=== PATIENT | male | born 1955 | race Hispanic/Latino ===

== ENCOUNTER 2020-03-14 07:21 | Day surgery (SDC) | payer MEDICAID ==
[2020-03-14 08:55] LABS: Basophils % (Auto) 0.9 % (0.0-1.8); Eosinophils # (Auto) 0.2 K/mm3 (0.0-0.4); Eosinophils % (Auto) 4.7 % (0.0-4.3); Hematocrit 37.8 % (35.5-45.6); Hemoglobin 12.8 gm/dl (11.8-15.2); Lymphocytes # (Auto) 0.9 K/mm3 (1.2-5.4); Lymphocytes % (Auto) 23.1 % (13.4-35.0); Mean Corpuscular HGB Conc 34 % (32-34); Mean Corpuscular Volume 84 fl (84-94); Monocytes # (Auto) 0.4 K/mm3 (0.0-0.8); Platelet Count 181 K/mm3 (140-440); Red Blood Count 4.48 M/mm3 (3.65-5.03); Red Cell Distribution Width 15.3 % (13.2-15.2)
[2020-03-14] MEDS ORDERED: SODIUM CHLORIDE 0.9% 500 ML 500 ML IV SCH (09:00)
[2020-03-14 09:15] LABS: BUN/Creatinine Ratio 11; Blood Urea Nitrogen 10 mg/dL (9-20); Calcium 9.3 mg/dL (8.4-10.2); Hemolysis Index 22
[2020-03-14] MEDS ORDERED: HEPARIN 10,000 UNITS/10 ML VIAL ONE (09:20)
[2020-03-14] MEDS ORDERED: LIDOCAINE (2%) 20 MG/1 ML VIAL 20 ML MDV INFILTRATI ONE (09:20)
[2020-03-14] MEDS ORDERED: HEPARIN/NS 5000 UNIT/500ML 1,000 ML IR ONE (09:20)
[2020-03-14] MEDS ORDERED: NITROGLYCERIN SYRINGE 0 ML ONE (09:20)
[2020-03-14] MEDS ORDERED: fentaNYL 100 MCG/2 ML INJ ONE (09:21)
[2020-03-14] MEDS: MIDAZOLAM 2 MG/2 ML INJ ONE ×2 (09:51→09:53)
[2020-03-14] MEDS: diphenhydrAMINE 50 MG/ML VIAL ONE ×2 (09:53→10:00)
[2020-03-14 09:55] LABS: INR 1.07 (0.87-1.13)
[2020-03-14 09:56] LABS: Partial Thromboplastin Time 26.1 Sec. (24.2-36.6)
[2020-03-14] MEDS ORDERED: MIDAZOLAM 2 MG/2 ML INJ ONE (09:58)
[2020-03-14 11:36] VITALS: BP 104/49
== END 2020-03-14 12:35 | disposition home or self-care (01) ==
LOC: CATHLABREC 07:21
PROVIDERS: ATTEND Internal Medicine
DX: R07.9 Chest pain, unspecified (principal); I25.118 Atherosclerotic heart disease of native coronary artery with other forms of angina pectoris; I73.9 Peripheral vascular disease, unspecified; E78.00 Pure hypercholesterolemia, unspecified; I10 Essential (primary) hypertension; J43.9 Emphysema, unspecified; K21.9 Gastro-esophageal reflux disease without esophagitis; E03.9 Hypothyroidism, unspecified; F41.9 Anxiety disorder, unspecified; F32.9 Major depressive disorder, single episode, unspecified; Z98.890 Other specified postprocedural states; Z79.899 Other long term (current) drug therapy; Z79.82 Long term (current) use of aspirin; Z95.1 Presence of aortocoronary bypass graft; Z95.5 Presence of coronary angioplasty implant and graft; Z90.49 Acquired absence of other specified parts of digestive tract; Z83.3 Family history of diabetes mellitus; Z82.49 Family history of ischemic heart disease and other diseases of the circulatory system; Z82.5 Family history of asthma and other chronic lower respiratory diseases; Z88.8 Allergy status to other drugs, medicaments and biological substances
CPT/HCPCS: 36415; 80048; 85025; 85610; 85730; 93005; 93458; 99156; 99157; C1894; J1200; J1644; J2250; J3010; J7040

== ENCOUNTER 2020-03-15 08:00 | Day surgery (SDC) | payer MEDICAID ==
[2020-03-15] MEDS ORDERED: SODIUM CHLORIDE 0.9% 500 ML 500 ML IV SCH (09:00)
[2020-03-15] MEDS ORDERED: LIDOCAINE (2%) 20 MG/1 ML VIAL 20 ML MDV INFILTRATI ONE (09:27)
[2020-03-15] MEDS ORDERED: HEPARIN/NS 5000 UNIT/500ML 1,000 ML IR ONE (09:27)
[2020-03-15] MEDS ORDERED: NITROGLYCERIN SYRINGE 0 ML ONE (09:27)
[2020-03-15] MEDS ORDERED: HEPARIN 10,000 UNITS/10 ML VIAL ONE (09:27)
[2020-03-15] MEDS ORDERED: SODIUM CHLORIDE 0.9% 1000 ML 1,000 ML ONE (09:28)
[2020-03-15] MEDS ORDERED: HYDROmorphone 1 MG/1 ML INJ ONE (10:08)
[2020-03-15] MEDS ORDERED: propofoL 200 MG/20 ML VIAL IV ONE ×3 (10:09)
[2020-03-15] MEDS ORDERED: KETAMINE/STERILE WATER 50 MG/ML SYRINGE ONE (10:09)
--- NOTE | 2020-03-15 10:25 | Anesthesia Consultation ---
Anesthesia Consult and Med Hx Date of service: 03/15/20 - Airway Anesthetic Teeth Evaluation: Partials ROM Head & Neck: Adequate Mental/Hyoid Distance: Adequate Mallampati Class: Class III Intubation Access Assessment: Possibly Difficult - Pulmonary Exam CTA: Yes - Cardiac Exam Cardiac Exam: RRR - Pre-Operative Health Status ASA Pre-Surgery Classification: ASA3 Proposed Anesthetic Plan: MAC - Pulmonary Hx Smoking: Yes (DOWN TO 2PACKS PER WEEK-SMOKER X 45 YRS) SOB: Yes (on exertion) COPD: Yes (albuterol prn) Home Oxygen Therapy: No Hx Sleep Apnea: Yes (noncompliant with CPAP) - Cardiovascular System Hx Hypertension: Yes Hx Coronary Artery Disease: Yes (s/p CABG 12/2016) Hx Angina: Yes (chronic) Hx Percutaneous Transluminal Coronary Angioplasty (PTCA): Yes (stent x 1 (12/2016), stent x 2 (2010)) Hx Cardia Arrhythmia: No Hx Pacemaker: No Hx Internal Defibrillator: No Hx Peripheral Vascular Disease: Yes (PAD w/ claudication) - Central Nervous System CVA: No Hx Back Pain: Yes Hx Psychiatric Problems: Yes (anxiety/panic disorder) - Gastrointestinal Hx Gastroesophageal Reflux Disease: Yes - Endocrine Hx Renal Disease: No Hx Liver Disease: Yes (HCV) Hx Insulin Dependent Diabetes: No Hx Non-Insulin Dependent Diabetes: No Hx Hypothyroidism: Yes - Other Systems Hx Substance Use: Yes (hx cocaine abuse; none since 2007) Hx Cancer: Yes (hx prostate and salivary gland cancer) - Additional Comments Anesthesia Medical History Comments: No hx anesthetic complications. Ongoing anginal symptoms with negative ST now scheduled for elective LHC. Previously attempted yesterday with moderate sedation but patient unable to tolerate 2/2 restlessness and anxiety. Anesthesia services consulted for assistance with sedation.
--- NOTE | 2020-03-15 10:25 | Anesthesia Day of Surgery ---
Anesthesia Day of Surgery - Day of Surgery Patient Examined: Yes Patient H&P Reviewed: Yes Patient is NPO: Yes Beta Blockers: Yes
[2020-03-15] MEDS ORDERED: MIDAZOLAM 2 MG/2 ML INJ ONE (10:42)
--- NOTE | 2020-03-15 11:07 | Short Stay Summary ---
Short Stay Documentation Date of service: 03/15/20 - History H&P: obtained from office - Allergies and Medications Current Medications: Allergies amitriptyline Allergy (Verified 03/14/20 08:35) Headache hydrocodone [From Vicodin] Allergy (Verified 08/05/17 10:32) Itching Home Medications Medication Instructions Recorded Confirmed Last Taken Type Albuterol INH(or & Nicu Only) 2 puff IH QID PRN 08/05/17 03/15/20 03/15/20 His tory [Proair] 2 Aspirin [Children's Aspirin] 81 mg PO DAILY 08/05/17 03/15/20 03/15/20 History 81 mg AtorvaSTATin [Lipitor] 40 mg PO QHS 08/05/17 03/15/20 03/15/20 History 40 mg Levothyroxine [Synthroid] 25 mcg PO QAM 08/05/17 03/15/20 03/15/20 History 25 mcg Losartan [Cozaar] 50 mg PO QDAY 08/05/17 03/15/20 03/14/20 06:00 History 1 tab Mirtazapine [Remeron] 15 mg PO QHS 08/05/17 03/15/20 03/14/20 History 15 mg Pantoprazole [Protonix] 40 mg PO BID 08/05/17 03/15/20 03/15/20 History 40 mg clonazePAM [Klonopin] 1 mg PO QHS 08/05/17 03/15/20 03/14/20 History 1 mg oxyCODONE /ACETAMINOPHEN [Percocet 1 tab PO Q6HR PRN 08/05/17 03/15/20 03/15/20 06:15 History 5/325] 1 Active Medications Sodium Chloride (Nacl 0.9% 500 Ml) 500 mls @ 50 mls/hr IV DIRECT WANDY Stop: 03/15/20 18:59 Last Admin: 03/15/20 08:59 Dose: 50 mls/hr Documented by: - Brief post op/procedure progress note Date of procedure: 03/15/20 Pre-op diagnosis: CAD Post-op diagnosis: same Procedure: C - see dictated cath report Anesthesia: GETA Estimated blood loss: none Condition: stable - Disposition Condition at discharge: Good Disposition: DC-01 TO HOME OR SELFCARE - Discharge Diagnoses (1) CAD (coronary artery disease) Status: Chronic (2) Hx of CABG Status: Chronic (3) Stented coronary artery Status: Chronic Short Stay Discharge Plan Activity: advance as tolerated Diet: low fat, low cholesterol, low salt Wound: open to air, keep clean and dry, per your surgeon's advice Follow up with: ARIADNE MONTOYA MD [Primary Care Provider] - 7 Days
--- NOTE | 2020-03-15 11:59 | Cardiac Catherization Report ---
CARDIAC CATHETERIZATION REPORT INDICATION FOR PROCEDURE: The patient is a 64-year-old white gentleman with a history of known coronary artery disease and peripheral vascular disease, underwent PCI of in-stent restenosis of the SVG to PDA on 12/28/2016, with history of aortocoronary bypass with initial stenting of the mid lesion in the SVG done on 09/13/2014, he had a history of bypass surgery done in 07/2008 with left internal mammary to the LAD and SVG to the PDA. Presently, he is having atypical chest pains on a regular basis. He is a chronic smoker. He had a stress nuclear imaging done in December of this year and it was unremarkable. However, because of persistent chest pain, the patient was scheduled for cardiac catheterization initially on 03/14/2020. However, because of difficulty having restless legs and difficulty managing his sedation, it was rescheduled for 03/15/2020 with the help of Anesthesiology. DESCRIPTION OF PROCEDURE: The patient received deep sedation with anesthesia including propofol, fentanyl and Dilaudid. Using director multimedia, the patient was sedated. Then the patient was prepared in standard fashion. The patient's right groin was prepared. Local anesthesia was given in the right groin. Using micropuncture needle, the right femoral artery access was made and 6-Swedish sheath was introduced. A 6-Swedish multipurpose catheter was used to obtain the angiograms of the saphenous vein graft to the right coronary artery and angiograms of the left coronary artery along with left ventriculogram done in DAVILA projection. Left mammary catheter was used to obtain the angiograms of the left internal mammary. At the end of the procedure, catheter and sheath were removed. The patient was sedated as per anesthesia throughout the procedure. At the end of the procedure, angiogram of the right femoral artery was obtained and an attempt was made to close the artery with a ProGlide device. A ProGlide device was applied after getting an angiogram and it was felt appropriate. However, it was not successful, hence manual pressure was applied and good hemostasis was achieved using manual pressure. No hematoma was noted. The patient tolerated the procedure well. At the end of the procedure, the patient is communicating well and breathing normally. No focal deficits noted. Following findings were noted. HEMODYNAMICS: 1. Opening aortic pressure 112/59, left ventricular pressure 111/56. Estimated ejection fraction 55%. No gradient across the aortic valve. Left ventriculogram done in DAVILA projection showed normal sized left ventricle with normal contractility. End-diastolic and systolic volumes are normal. Mitral regurgitation could not be evaluated. 2. Right coronary artery dominant vessel arises normally from right coronary cusp. There is a 50-60% mid to distal disease and significant 80% lesion at the origin of the PDA. There is a competitive flow from the vein graft making evaluation of the LV branches difficult. 3. Saphenous vein graft to the mid PDA is widely patent. SVG itself and including the mid stent is widely patent. PDA, LV branches are large vessels and without any significant disease. 4. Left coronary artery arises normally from left coronary cusp. Left main without significant disease. LAD shows long disease in the proximal one-third 80-90%. This is supplying a medium sized diagonal branch in the mid part. However, distal to this mid diagonal LV branch is protected by widely patent left internal mammary graft. Left internal mammary graft itself is patent and distal LAD without significant disease. Circumflex artery shows a 50% smooth ostial to proximal lesion. This is relatively small caliber vessel without any significant disease in the mid and distal part. Fairly large ramus branch shows widely patent stent in the mid part. Ramus branch itself without significant disease. 5. Collaterals none. FINAL IMPRESSION: 1. Normal sized left ventricle with normal contractility. 2. Severe 3-vessel disease with widely patent left internal mammary protecting the distal LAD and widely patent SVG to the RCA with patent stent in the mid part of this graft is protecting the PDA and LV branches. Circumflex artery shows only moderate disease and large ramus branch shows widely patent stent without any significant disease. Considering the above angiographic pictures, the patient will be continued on risk factor modification and medical therapy. At this time, etiology of her chest pain is not clear. Continue his present medical therapy including aspirin and atorvastatin. He was encouraged to quit smoking. He was made aware of the harmful effects of smoking. The patient will be continued on medical therapy. No untoward complications noted and no hematoma noted in the right groin. It is to be noted the patient was sedated with the help of director multimedia. JOB# [id number] KAPIL/HARVEY KNIGHT
[2020-03-15] MEDS ORDERED: LIDOCAINE MPF (2%) 20 MG/1 ML VIAL 5 ML ONE (12:00)
[2020-03-15] MEDS ORDERED: oxyCODONE /ACETAMINOPHEN 5-325MG TAB PO ONE (13:20)
[2020-03-15 14:44] VITALS: BP 104/59
--- NOTE | 2020-03-15 15:17 | Post Anesthesia Evaluation ---
- Post Anesthesia Evaluation Patient Participated: Yes Airway Patent: Yes Stable Respiratory Function: Yes Nausea/Vomiting: No Temp > 96.8F: Yes Pain Manageable: Yes Adequeate Hydration: Yes Anesthesia Complications: No
== END 2020-03-15 08:01 | disposition home or self-care (01) ==
LOC: CATHLABREC 08:00
PROVIDERS: ATTEND Internal Medicine
DX: R07.89 Other chest pain (principal); I25.10 Atherosclerotic heart disease of native coronary artery without angina pectoris; F17.210 Nicotine dependence, cigarettes, uncomplicated; I73.9 Peripheral vascular disease, unspecified; E78.00 Pure hypercholesterolemia, unspecified; J43.9 Emphysema, unspecified; G47.30 Sleep apnea, unspecified; K21.9 Gastro-esophageal reflux disease without esophagitis; F32.9 Major depressive disorder, single episode, unspecified; F41.9 Anxiety disorder, unspecified; E03.9 Hypothyroidism, unspecified; D64.9 Anemia, unspecified; Z98.890 Other specified postprocedural states; Z95.1 Presence of aortocoronary bypass graft; Z95.5 Presence of coronary angioplasty implant and graft; Z88.8 Allergy status to other drugs, medicaments and biological substances; Z79.82 Long term (current) use of aspirin; Z79.899 Other long term (current) drug therapy; Z90.49 Acquired absence of other specified parts of digestive tract; Z83.3 Family history of diabetes mellitus; Z82.5 Family history of asthma and other chronic lower respiratory diseases; Z82.49 Family history of ischemic heart disease and other diseases of the circulatory system
CPT/HCPCS: 93459; C1760; C1894; J1170; J1644; J2250; J2704; J7030; J7040; Q9967

== ENCOUNTER 2022-05-27 06:14 | Day surgery (SDC) | payer MEDICARE ==
[2022-05-27 07:49] LABS: Hemoglobin 15.1 gm/dl (11.8-15.2); Lymphocytes % (Auto) 23.1 % (13.4-35.0); Mean Corpuscular HGB Conc 33 % (32-34); Mean Corpuscular Volume 88 fl (84-94); Mean Platelet Volume 9.6 fl (6-12); Monocytes % (Auto) 9.6 % (0.0-7.3); Platelet Count 104 K/mm3 (140-440); Red Blood Count 5.22 M/mm3 (3.65-5.03); Red Cell Distribution Width 14.8 % (13.2-15.2)
[2022-05-27 07:50] LABS: Basophils % (Auto) 0.5 % (0.0-1.8); Eosinophils # (Auto) 0.3 K/mm3 (0.0-0.4); Eosinophils % (Auto) 4.2 % (0.0-4.3); Lymphocytes # (Auto) 1.4 K/mm3 (1.2-5.4); Monocytes # (Auto) 0.6 K/mm3 (0.0-0.8)
[2022-05-27 07:56] LABS: INR 0.88 (0.87-1.13); Partial Thromboplastin Time 27.7 Sec. (24.2-36.6)
[2022-05-27] MEDS ORDERED: SODIUM CHLORIDE 0.9% 500 ML 500 ML IV SCH (08:00)
[2022-05-27] MEDS ORDERED: LIDOCAINE (2%) 20 MG/1 ML VIAL 50 ML MDV INFILTRATI ONE (08:20)
[2022-05-27] MEDS ORDERED: HEPARIN/NS 5000 UNIT/500ML 500 ML IR ONE (08:20)
[2022-05-27 08:34] LABS: BUN/Creatinine Ratio 11; Blood Urea Nitrogen 10 mg/dL (9-20); Calcium 9.8 mg/dL (8.4-10.2); Hemolysis Index 5
[2022-05-27] MEDS ORDERED: MIDAZOLAM 2 MG/2 ML INJ IV NR (09:05)
[2022-05-27] MEDS ORDERED: fentaNYL 100 MCG/2 ML INJ ONE (09:15)
[2022-05-27 10:02] VITALS: BP 136/68
--- NOTE | 2022-05-27 12:08 | Short Stay Summary ---
Short Stay Documentation Date of service: 05/27/22 - History H&P: obtained from office - Allergies and Medications Current Medications: Allergies amitriptyline Allergy (Verified 03/14/20 08:35) Headache hydrocodone [From Vicodin] Allergy (Verified 08/05/17 10:32) Itching Home Medications Medication Instructions Recorded Confirmed Last Taken Type Albuterol Mdi (or & Nicu Only) 2 puff IH QID PRN 08/05/17 05/27/22 05/27/22 05 :15 History [Proair] 2 puffs Aspirin [Children's Aspirin] 81 mg PO DAILY 08/05/17 05/27/22 05/27/22 05:45 History 81 mg AtorvaSTATin [Lipitor] 40 mg PO QHS 08/05/17 05/27/22 05/26/22 History 40 mg Levothyroxine [Synthroid] 25 mcg PO QAM 08/05/17 05/27/22 05/26/22 History 25 mcg Losartan [Cozaar] 25 mg PO QDAY 08/05/17 05/27/22 05/26/22 History 25 mc clonazePAM [Klonopin] 1 mg PO QHS 08/05/17 05/27/22 05/26/22 History 1 mg oxyCODONE /ACETAMINOPHEN [Percocet 10 mg PO Q6HR PRN 08/05/17 05/27/22 05/26/22 History 5/325] 1 tab Isosorbide Mononitrate [Isosorbide 30 mg PO DAILY 05/27/22 05/27/22 05/26/22 History Mononitrate ER] 30 mg Metoprolol [Lopressor TAB] 25 mg PO DAILY 05/27/22 05/27/22 05/26/22 History 25 mg Omeprazole 40 mg PO DAILY 05/27/22 05/27/22 05/26/22 History 40 mg - Hospital course Hospital course: Patient presents today for cardiac cath. However patient unable to tolerate procedure at this time due to anxiety and restless leg syndrome. Patient will be discharged home and rescheduled to have cardiac cath with anesthesia. Long conversation had with both patient and patient significant other who is at bedside. - Disposition Condition at discharge: Good Disposition: 01 HOME / SELF CARE / HOMELESS - Discharge Diagnoses (1) CAD (coronary artery disease) Status: Chronic (2) Hx of CABG Status: Chronic (3) Stented coronary artery Status: Chronic Short Stay Discharge Plan Follow up with: ARIADNE MONTOYA MD [Primary Care Provider] - 7 Days Forms: Post Sedation D/C Instructions
--- NOTE | 2022-05-27 13:20 | Electrocardiograph Report ---
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
== END 2022-05-27 10:20 | disposition home or self-care (01) ==
LOC: CATHLABREC 06:14
PROVIDERS: ATTEND Internal Medicine
DX: R07.89 Other chest pain (principal); I25.10 Atherosclerotic heart disease of native coronary artery without angina pectoris; I25.118 Atherosclerotic heart disease of native coronary artery with other forms of angina pectoris; I48.91 Unspecified atrial fibrillation; E78.00 Pure hypercholesterolemia, unspecified; J43.9 Emphysema, unspecified; G47.30 Sleep apnea, unspecified; M19.90 Unspecified osteoarthritis, unspecified site; E03.9 Hypothyroidism, unspecified; F32.9 Major depressive disorder, single episode, unspecified; F41.9 Anxiety disorder, unspecified; D64.9 Anemia, unspecified; F17.210 Nicotine dependence, cigarettes, uncomplicated; Z53.8 Procedure and treatment not carried out for other reasons; Z83.3 Family history of diabetes mellitus; Z82.5 Family history of asthma and other chronic lower respiratory diseases; Z98.890 Other specified postprocedural states; Z95.1 Presence of aortocoronary bypass graft; Z79.899 Other long term (current) drug therapy; Z88.8 Allergy status to other drugs, medicaments and biological substances; Z79.82 Long term (current) use of aspirin; Z95.5 Presence of coronary angioplasty implant and graft; Z82.49 Family history of ischemic heart disease and other diseases of the circulatory system; Z86.73 Personal history of transient ischemic attack (TIA), and cerebral infarction without residual deficits
CPT/HCPCS: 36415; 80048; 85025; 85610; 85730; 93005; J1644; J2250; J3010; J3490; J7040

== ENCOUNTER 2022-05-29 06:57 | Day surgery (SDC) | payer MEDICARE ==
[~2022-05-29 06:57] MED LIST: SODIUM CHLORIDE 0.9% 750 ML ONE
--- NOTE | 2022-05-29 08:13 | Anesthesia Day of Surgery ---
Anesthesia Day of Surgery - Day of Surgery Patient Examined: Yes Patient H&P Reviewed: Yes Patient is NPO: Yes
--- NOTE | 2022-05-29 08:13 | Anesthesia Consultation ---
Anesthesia Consult and Med Hx Date of service: 05/29/22 - Airway Anesthetic Teeth Evaluation: Dentures (upper only), Edentulous ROM Head & Neck: Adequate Mental/Hyoid Distance: Adequate Mallampati Class: Class II Intubation Access Assessment: Probably Good - Pre-Operative Health Status ASA Pre-Surgery Classification: ASA3 Proposed Anesthetic Plan: MAC - Pulmonary Hx Smoking: Yes (DOWN TO 2PACKS PER WEEK-SMOKER X 45 YRS) Hx Asthma: Yes SOB: Yes (on exertion) COPD: Yes (albuterol daily) Hx Pneumonia: No Hx Sleep Apnea: Yes (noncompliant with CPAP) - Cardiovascular System Hx Hypertension: Yes Hx Coronary Artery Disease: Yes (s/p CABG 12/2016) Hx Angina: Yes (chronic) Hx Percutaneous Transluminal Coronary Angioplasty (PTCA): Yes (stent x 1 (12/2016), stent x 2 (2010)) Hx Cardia Arrhythmia: No Hx Pacemaker: No Hx Internal Defibrillator: No Hx Peripheral Vascular Disease: Yes (PAD w/ claudication) - Central Nervous System Hx Seizures: No CVA: Yes (2019) Hx Back Pain: Yes Hx Psychiatric Problems: Yes (anxiety/panic disorder, shakes) - Gastrointestinal Hx Gastroesophageal Reflux Disease: Yes - Endocrine Hx Renal Disease: No Hx End Stage Renal Disease: No Hx Liver Disease: Yes (HCV) Hx Insulin Dependent Diabetes: No Hx Non-Insulin Dependent Diabetes: No Hx Thyroid Disease: Yes Hx Hypothyroidism: Yes - Hematic Hx Anemia: Yes - Other Systems Hx Substance Use: Yes (hx cocaine abuse; none since 2007) Hx Cancer: Yes (hx prostate and salivary gland cancer)
[2022-05-29] MEDS ORDERED: SODIUM CHLORIDE 0.9% 1000 ML 1,000 ML IV SCH (08:30)
[2022-05-29] MEDS ORDERED: SODIUM CHLORIDE 0.9% 500 ML 500 ML IV SCH (09:00)
[2022-05-29] MEDS ORDERED: propofoL 200 MG/20 ML VIAL IV ONE (09:01)
[2022-05-29] MEDS ORDERED: MIDAZOLAM 5 MG/5 ML INJ MDV IV ONE (09:01)
[2022-05-29] MEDS ORDERED: HYDROmorphone 1 MG/1 ML INJ ONE ×2 (09:01→14:07)
[2022-05-29] MEDS ORDERED: HEPARIN/NS 5000 UNIT/500ML 1,000 ML IR ONE (09:33)
[2022-05-29] MEDS ORDERED: HEPARIN 10,000 UNITS/10 ML VIAL ONE (09:33)
[2022-05-29] MEDS ORDERED: ASPIRIN EC 325 MG TAB PO ONE (10:54)
[2022-05-29] MEDS ORDERED: CLOPIDOGREL 300 MG TAB ONE (10:54)
[2022-05-29] MEDS ORDERED: ALUM-MAG HYDROXIDE-SIMETHICONE 200-200-20MG/5ML ORAL LIQD 30 ML ONE (10:55)
--- NOTE | 2022-05-29 11:21 | Short Stay Summary ---
Short Stay Documentation Date of service: 05/29/22 - History H&P: obtained from office - Allergies and Medications Current Medications: Allergies amitriptyline Allergy (Verified 03/14/20 08:35) Headache hydrocodone [From Vicodin] Allergy (Verified 08/05/17 10:32) Itching Home Medications Medication Instructions Recorded Confirmed Last Taken Type Albuterol Mdi (or & Nicu Only) 2 puff IH QID PRN 08/05/17 05/29/22 05/29/22 06 :00 History [Proair] 0600 Aspirin [Children's Aspirin] 81 mg PO DAILY 08/05/17 05/29/22 05/29/22 History 0600 AtorvaSTATin [Lipitor] 40 mg PO QHS 08/05/17 05/29/22 05/28/22 History 40 mg Levothyroxine [Synthroid] 25 mcg PO QAM 08/05/17 05/29/22 05/28/22 History 25 mcg Losartan [Cozaar] 25 mg PO QDAY 08/05/17 05/29/22 05/28/22 History 25 mg clonazePAM [Klonopin] 1 mg PO QHS 08/05/17 05/29/22 05/28/22 History 1 mg oxyCODONE /ACETAMINOPHEN [Percocet 10 mg PO Q6HR PRN 08/05/17 05/29/22 05/28/22 History 5/325] 1 tab Isosorbide Mononitrate [Isosorbide 30 mg PO DAILY 05/27/22 05/29/22 05/28/22 History Mononitrate ER] 30 mg Metoprolol [Lopressor TAB] 25 mg PO DAILY 05/27/22 05/29/22 05/28/22 History 25 mg Omeprazole 40 mg PO DAILY 05/27/22 05/29/22 05/28/22 History 40 mg Clopidogrel [Plavix] 75 mg PO QDAY 30 Days #30 tablet 05/29/22 Unknown Rx Ranolazine ER [Ranexa ER] 500 mg PO BID 30 Days #60 05/29/22 Unknown Rx tab.er.12h Active Medications Acetaminophen (Acetaminophen 325 Mg Tab) 650 mg PO Q4H PRN PRN Reason: Pain, Mild (1-3) Sodium Chloride (Nacl 0.9% 1000 Ml) 1,000 mls @ 42 mls/hr IV DIRECT WANDY Stop: 05/29/22 20:00 Last Admin: 05/29/22 10:06 Dose: 300 mls Oxycodone/Acetaminophen (Oxycodone /Acetaminophen 5-325mg Tab) 2 tab PO Q6H PRN PRN Reason: Pain, Moderate (4-6) - Physical exam Integumentary: other (Dressing clean dry and intact with no signs of bleeding or hematoma) - Brief post op/procedure progress note Date of procedure: 05/29/22 Pre-op diagnosis: CAD, Chest pain Post-op diagnosis: same Anesthesia: other (General anesthesia) Estimated blood loss: minimal - Hospital course Hospital course: Patient presents today for cardiac cath due to recurrent chest pain. Anesthesia was consulted for sedation. Patient tolerated procedure well with no complications. Patient had PCI of RCA. Patient to be discharged same day on DAPT therapy with aspirin and Plavix. Patient also to have prescription for Ranexa 500 mg p.o. twice daily. Patient to follow-up with the office. Plan of care discussed with patient. - Disposition Condition at discharge: Good Disposition: 01 HOME / SELF CARE / HOMELESS - Discharge Diagnoses (1) CAD (coronary artery disease) Status: Chronic (2) Hx of CABG Status: Chronic (3) Stented coronary artery Status: Chronic Short Stay Discharge Plan Activity: advance as tolerated Diet: low fat, low cholesterol, low salt Wound: keep clean and dry, per your surgeon's advice Follow up with: ARIADNE MONTOYA MD [Primary Care Provider] - 7 Days MAKAYLA WORRELL MD [Staff Physician] - 06/18/22 11:45 am (Patient follow-up in our [place] location) Prescriptions: Clopidogrel [Plavix] 75 mg PO QDAY 30 Days #30 tablet Ranolazine ER [Ranexa ER] 500 mg PO BID 30 Days #60 tab.er.12h
[2022-05-29] MEDS ORDERED: ACETAMINOPHEN 325 MG TAB PO PRN (11:30)
[2022-05-29] MEDS ORDERED: oxyCODONE /ACETAMINOPHEN 5-325MG TAB PO PRN (11:30)
[2022-05-29] MEDS ORDERED: HYDROmorphone 2 MG/1 ML INJ IV PRN (12:30)
[2022-05-29] MEDS ORDERED: HYDROmorphone 0.5 MG/0.5 ML INJ IV PRN (14:07)
--- NOTE | 2022-05-29 15:11 | Cardiac Catherization Report ---
DATE OF PROCEDURE: 05/29/2022 REFERRING PHYSICIAN: Dr. Angel. INDICATIONS FOR PROCEDURE: The patient is a pleasant 66-year-old gentleman with known history of coronary artery disease, PCI, CABG, restless leg syndrome, here for abnormal stress test and chest pain, left heart catheterization. He actually came 2 days ago for elective catheterization. He has severe restless legs and requires anesthesia for a cardiac catheterization and thus we did the procedure today due to scheduled anesthesia. Risks, benefits and alternatives discussed at length prior to obtaining informed consent. PROCEDURE IN DETAIL: The patient was brought to the laboratory worker in a postabsorptive state, prepped and draped in sterile fashion. He has had a right groin complication in the past. We used the left groin. An 8 mL of 2% lidocaine used to anesthetize the left groin. A standard 6-Chinese sheath placed in the left common femoral artery via modified Seldinger technique. Anesthesia bedside to provide sedation throughout. A JL4 catheter used to engage the left main. No dampening or ventricularization. Cineangiography performed in all projections. JR4 catheter used to cross the aortic valve under fluoroscopic guidance. Left ventriculography performed in 30-degree DAVILA and 30-degree SO projections via hand injections, catheter flushed. Manual pullback performed with continuous pressure monitoring. Catheter used to engage the right coronary. No dampening or ventricularization. Cineangiography performed in all projections. Next, a catheter used to engage the SVG to PDA, angiography performed in all projections. Next, the catheter is used to engage the left subclavian due to tortuosity, selective third order mid left subclavian angiography was performed. Next, selective CABRERA angiography was performed carefully. The ____ was removed over a wire. DATA: Aortic pressure is 110/60, LV pressure is 110, LVEDP of 7 mmHg. Left heart reveals normal systolic performance, estimated ejection fraction 55-60%. No evidence of aortic stenosis. CORONARY ANATOMY: Right dominant system. Left main is patent. LAD with a chronic total occlusion in the mid segment with competitive flow from the CABRERA. Left circumflex is a diminutive vessel, no significant disease noted. Stent in the proximal OM1 is patent. The SVG to posterolateral branch is widely patent, 25% stenosis proximally. Stent in the proximal segment is patent. ____ right coronary to PDA with a 95% stenosis in the mid segment. This is unrevascularized. CABRERA to LAD is widely patent. Left subclavian is also widely patent. Given recurrent angina despite optimal medical therapy, we decided to pursue with PCI as this is clearly the culprit vessel. Heparin given. Abnormal ACT confirmed. The patient reloaded with aspirin and Plavix. We used a [place] wire to cross the lesion without difficulty. A JR4 sidehole guide. No dampening. Direct stented with an 2.5 x 18 Alfredo deployed at 12 ISHMAEL for 30 seconds. Excellent angiographic result. Intravascular ultrasound was performed, multiple passes were made, well-expanded well opposed stent. PATRICE 3 flow throughout. Excellent angiographic and ultrasonographic results. No complications. The patient is electrically and hemodynamically stable throughout. CONCLUSIONS: 1. Severe multivessel coronary artery disease as aforementioned. A. Patent left main. B. Known chronic total occlusion of mid LAD. C. Patent proximal OM1 stent. D. Chronic total occlusion of the distal right posterolateral. E. Patent SVG to posterolateral, patent stent in the SVG to proximal segment of SVG. F. 90% culprit stenosis of mid right coronary to PDA. G. Patent CABRERA to LAD. H. Patent left subclavian. Successful IVUS-guided percutaneous coronary intervention of mid RCA with placement of drug-eluting stent ([place] 2.5 x 18) with excellent final angiographic and ultrasonographic results. PATRICE 3 flow, 0% residual stenosis. Normal LV function, estimated ejection fraction 55-60%. No evidence of stenosis. The patient is now clinically stable, chest pain free. Anesthesia and laboratory worker staff to recover the patient. Pull sheath once ACT less than 170. Aspirin, Plavix, statin therapy. He meets criteria for same day discharge. We will consider discharge once the patient is awake and groin is stable. Results of procedure explained to the patient and family. All questions were addressed. TID: [id number] RECEIPT: [id number] BANG/CHARITO/HAWK/[place]
[2022-05-29 19:11] VITALS: BP 116/50
--- NOTE | 2022-05-29 22:49 | Electrocardiograph Report ---
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
== END 2022-05-29 19:50 | disposition home or self-care (01) ==
LOC: CATHLABREC 06:57
PROVIDERS: ATTEND Internal Medicine
DX: I25.118 Atherosclerotic heart disease of native coronary artery with other forms of angina pectoris (principal); G25.81 Restless legs syndrome; T82.855A Stenosis of coronary artery stent, initial encounter; E78.00 Pure hypercholesterolemia, unspecified; I10 Essential (primary) hypertension; J43.9 Emphysema, unspecified; G47.30 Sleep apnea, unspecified; E03.9 Hypothyroidism, unspecified; F32.9 Major depressive disorder, single episode, unspecified; F41.9 Anxiety disorder, unspecified; D64.9 Anemia, unspecified; F17.210 Nicotine dependence, cigarettes, uncomplicated; Z83.3 Family history of diabetes mellitus; Z82.5 Family history of asthma and other chronic lower respiratory diseases; Z88.8 Allergy status to other drugs, medicaments and biological substances; Z79.899 Other long term (current) drug therapy; Z79.82 Long term (current) use of aspirin; Z95.1 Presence of aortocoronary bypass graft; Z95.5 Presence of coronary angioplasty implant and graft; Z90.49 Acquired absence of other specified parts of digestive tract; Z98.890 Other specified postprocedural states; Z82.49 Family history of ischemic heart disease and other diseases of the circulatory system; Z86.73 Personal history of transient ischemic attack (TIA), and cerebral infarction without residual deficits; Y83.8 Other surgical procedures as the cause of abnormal reaction of the patient, or of later complication, without mention of misadventure at the time of the procedure; Y92.89 Other specified places as the place of occurrence of the external cause
CPT/HCPCS: 85347; 92978; 93005; 93459; C1753; C1769; C1874; C1887; C1894; C9600; J1170; J1644; J2250; J2704; J7030; 92928; J3490; Q9967